=== PATIENT | male | born 1955 | race Hispanic/Latino ===

== ENCOUNTER 2023-04-25 10:58 | Inpatient (IN) | payer OTHER ==
[2023-04-25] MEDS ORDERED: NA CHLORIDE 0.9% 1,000 ML ONE ×2 (12:58→18:10)
[2023-04-25 13:13] LABS: Absolute Lymphocytes (CBC) 1.7 K/uL (0.7-4.9); Hematocrit 39.7 % (39.6-49.0); Lymphocytes % 8.9 % (15.3-44.8); MPV 10.5 fL (7.6-11.3); Platelets 288 thou/uL (152-406); RBC Red Blood Cell Count 4.41 M/uL (4.33-5.43)
[2023-04-25 13:29] LABS: Bilirubin Total 1.6 mg/dL (0.2-1.0); Potassium 3.9 mEq/L (3.5-5.1); Protein, Total 8.2 g/dL (6.4-8.2)
[2023-04-25] MEDS ORDERED: ONDANSETRON 4 MG/2 ML VIAL ONE (13:54)
[2023-04-25] MEDS ORDERED: MORPHINE 4 MG/ML SYR ONE (13:54)
[2023-04-25] MEDS ORDERED: ACETAMINOPHEN 500 MG TAB ONE (13:54)
[2023-04-25] MEDS ORDERED: NA CHLORIDE 0.9% 100 ML ONE (13:54)
[2023-04-25] MEDS ORDERED: PIPERACIL/TAZO 3.375 GM VIAL IV ONE (13:55)
--- NOTE | 2023-04-25 13:57 | RAD REPORT ---
EXAM DESCRIPTION: CT - Abdomen Pelvis W Contrast - 04/25/2023 1:38 pm CLINICAL HISTORY: Abdominal pain COMPARISON: none. TECHNIQUE: Computed axial tomography of the abdomen pelvis was obtained. 100 cc Isovue-300 was admin istered intravenously. Oral contrast was not requested which limits evaluation of bowel and appendix All CT scans are performed using dose optimization technique as appropriate and may include automated exposure control or mA/KV adjustment according to patient size. FINDINGS: Liver, spleen, pancreas, adrenals and left kidney unremarkable Right renal cysts. Largest 2.6 centimeters. Cholelithiasis 5 centimeter fluid collection lies medial to the cecum. It contains air. Stranding is present within the adjacent fat. This probably represents an abscess. A normal appendix is not visualized. No free air IMPRESSION: 5 centimeter abscess medial to the cecum. Since a normal appendix is not visualized this probably is the sequela of perforated appendicitis Cholelithiasis
[2023-04-25 14:27] LABS: Protime INR 1.12
[2023-04-25 14:57] LABS: Specific Gravity > 1.030 (1.005-1.030); Urine Bacteria None Seen /HPF (<20); Urine Bilirubin NEGATIVE (Negative); Urine Blood Negative (Negative); Urine Clarity Clear (Clear); Urine Color Yellow (Yellow); Urine Crystals Unidentified Few /HPF (None Seen); Urine Glucose NEGATIVE (Negative); Urine Mucus Slight /HPF (None Seen); Urine Protein 1+ (Negative); Urine RBC <5 /HPF (None Seen); Urine Urobilinogen 3+ (Normal)
[2023-04-25] MEDS ORDERED: METRONIDAZOLE 500mg IVPB 500 MG/100 ML BAG IV ONE (15:31)
--- NOTE | 2023-04-25 16:18 | EDPHYS ---
Physician Documentation [facility] Name: Murphy Mcdermott Age: 67 yrs Sex: Male : 1955 Arrival Date: 04/25/2023 Time: 10:58 Bed 20 Private MD: ED Physician Soraya Acosta HPI: 04/25 17:30 This 67 yrs old Male presents to ER via Ambulatory with complaints of cp3 Abdominal Pain. 17:30 The patient is a 67-year-old male with a history of hypertension, gout, cp3 hypercholesterolemia who presents to the ED secondary to lower abdominal pain that started on . Patient denies fever, chills, nausea, vomiting, diarrhea, anorexia. Pain became more severe today which prompted him to come to the emergency department.. 17:43 The patient presents with abdominal pain right lower quadrant, in the left lower cp3 quadrant. Onset: The symptoms/episode began/occurred acutely. The symptoms do not radiate. Associated signs and symptoms: none. The symptoms are described as achy, constant, crampy. Modifying factors: The symptoms are alleviated by nothing. Severity of pain: At its worst the pain was moderate in the emergency department the pain has improved. Historical: - Allergies: 11:15 No Known Allergies; ll1 - PMHx: 11:15 Hypercholesterolemia; Hypertensive disorder; Gout; ll1 - PSHx: 11:16 knee SX; ll1 - Immunization history:: Adult Immunizations up to date. - Social history:: Smoking status: Patient denies any tobacco usage or history of. - Family history:: not pertinent. - History obtained from: , endorsed she made him come in because of the pain. ROS: 17:30 Constitutional: Negative for fever, chills, and weight loss, Eyes: Negative for injury, cp3 pain, redness, and discharge, ENT: Negative for injury, pain, and discharge, Neck: Negative for injury, pain, and swelling, Cardiovascular: Negative for chest pain, palpitations, and edema, Respiratory: Negative for shortness of breath, cough, wheezing, and pleuritic chest pain, Back: Negative for injury and pain, : Negative for injury, bleeding, discharge, and swelling, MS/Extremity: Negative for injury and deformity, Skin: Negative for injury, rash, and discoloration, Neuro: Negative for headache, weakness, numbness, tingling, and seizure, Psych: Negative for depression, anxiety, suicide ideation, homicidal ideation, and hallucinations, Allergy/Immunology: Negative for hives, rash, and allergies, Endocrine: Negative for neck swelling, polydipsia, polyuria, polyphagia, and marked weight changes, Hematologic/Lymphatic: Negative for swollen nodes, abnormal bleeding, and unusual bruising. 17:30 Abdomen/GI: Positive for abdominal pain. Exam: 17:43 Constitutional: This is a well developed, well nourished patient who is awake, alert, cp3 and in no acute distress. Head/Face: Normocephalic, atraumatic. Eyes: Pupils equal round and reactive to light, extra-ocular motions intact. Lids and lashes normal. Conjunctiva and sclera are non-icteric and not injected. Cornea within normal limits. Periorbital areas with no swelling, redness, or edema. ENT: Nares patent. No nasal discharge, no septal abnormalities noted. Tympanic membranes are normal and external auditory canals are clear. Oropharynx with no redness, swelling, or masses, exudates, or evidence of obstruction, uvula midline. Mucous membranes moist. Neck: Trachea midline, no thyromegaly or masses palpated, and no cervical lymphadenopathy. Supple, full range of motion without nuchal rigidity, or vertebral point tenderness. No Meningismus. Chest/axilla: Normal chest wall appearance and motion. Nontender with no deformity. No lesions are appreciated. Cardiovascular: Regular rate and rhythm with a normal S1 and S2. No gallops, murmurs, or rubs. Normal PMI, no JVD. No pulse deficits. Respiratory: Lungs have equal breath sounds bilaterally, clear to auscultation and percussion. No rales, rhonchi or wheezes noted. No increased work of breathing, no retractions or nasal flaring. Back: No spinal tenderness. No costovertebral tenderness. Full range of motion. Male : Normal genitalia with no discharge or lesions. 17:43 MS/ Extremity: Pulses equal, no cyanosis. Neurovascular intact. Full, normal range of motion. Neuro: Awake and alert, GCS 15, oriented to person, place, time, and situation. Cranial nerves II-XII grossly intact. Motor strength 5/5 in all extremities. Sensory grossly intact. Cerebellar exam normal. Normal gait. Psych: Awake, alert, with orientation to person, place and time. Behavior, mood, and affect are within normal limits. 17:43 Abdomen/GI: Palpation: soft, moderate abdominal tenderness, suprapubic region. Vital Signs: 11:16 BP 110 / 81; Pulse 89; Resp 17; Temp 100; Pulse Ox 99% ; Weight 86.18 kg; Height 5 ft. ll1 6 in. ; Pain 10/10; 12:59 BP 109 / 69; Pulse 78; Resp 18; Pulse Ox 100% on R/A; mb9 14:10 BP 112 / 70; Pulse 84; Resp 16; Pulse Ox 100% on R/A; mb9 16:22 BP 96 / 70; Pulse 80; Resp 18; Temp 99.1(O); Pulse Ox 97% on R/A; mb9 20:51 BP 110 / 82; Pulse 83; Resp 16; Pulse Ox 97% ; Pain 8/10; sm8 11:16 Body Mass Index 30.67 (86.18 kg, 167.64 cm) ll1 11:16 Pain Scale: Adult ll1 20:51 Pain Scale: Adult sm8 Procedures: 17:43 Performed quality assurance monitor rhythm strip interpreted by ia rate 80, normal sinus rhythm. cp3 MDM: 11:04 Patient medically screened. cp3 17:43 Differential diagnosis: appendicitis, bowel obstruction, Cholelithiasis, cp3 diverticulitis, gastritis, gastroesophageal reflux disease, non-specific abd pain. Data reviewed: vital signs, nurses notes, radiologic studies, CT scan. Management of patient was discussed with the following: Hospitalist: dr hidalgo. Management of patient was discussed with the following: general surgery. I considered the following discharge prescriptions or medication management in the emergency department Medications were administered in the Emergency Department. See MAR. ED course: ivf, iv abx, npo status. 04/25 12:06 Order name: CBC with Diff; Complete Time: 13:26 3 04/25 12:06 Order name: CMP; Complete Time: 14:13 cp3 04/25 12:06 Order name: Lipase; Complete Time: 14:13 3 04/25 13:28 Order name: Blood Culture Adult (2) 3 04/25 13:28 Order name: Lactate w/ 2H reflex if indic.; Complete Time: 15:15 cp3 04/25 13:28 Order name: Protime (+inr); Complete Time: 15:15 cp3 04/25 13:28 Order name: Ptt, Activated; Complete Time: 15:15 cp3 04/25 13:28 Order name: Urinalysis w/ reflexes; Complete Time: 15:15 cp3 04/25 18:08 Order name: Phosphorus EDMS 04/25 18:08 Order name: NT PRO-BNP EDMS 04/25 18:08 Order name: Magnesium EDMS 04/26 02:54 Order name: CBC with Automated Diff EDMS 04/26 03:15 Order name: Hemoglobin A1c EDMS 04/26 03:40 Order name: Basic Metabolic Panel EDMS 04/26 03:40 Order name: Lipid Profile EDMS 04/25 12:06 Order name: CT Abd/Pelvis - IV Contrast Only; Complete Time: 14:13 cp3 04/25 13:28 Order name: EKG; Complete Time: 13:28 cp3 04/25 12:06 Order name: IV Saline Lock; Complete Time: 12:58 cp3 04/25 12:06 Order name: Labs collected and sent; Complete Time: 12:58 cp3 04/25 13:28 Order name: Accucheck; Complete Time: 14:09 cp3 04/25 13:28 Order name: Cardiac monitoring; Complete Time: 14:09 cp3 04/25 13:28 Order name: EKG - Nurse/Tech; Complete Time: 14:47 cp3 04/25 13:28 Order name: IV Saline Lock - Large Bore; Complete Time: 14:09 cp3 04/25 13:28 Order name: O2 Per Protocol; Complete Time: 14:09 cp3 04/25 13:28 Order name: O2 Sat Monitoring; Complete Time: 14:09 cp3 04/25 13:28 Order name: Vital Signs; Complete Time: 14:09 cp3 04/25 16:17 Order name: NPO; Complete Time: 16:23 cp3 Administered Medications: 12:58 Drug: NS 0.9% IV 1000 ml Route: IV; Rate: 1 bolus; Site: left forearm; mb9 14:00 Follow up: IV Status: Completed infusion; IV Intake: 1000ml eh3 13:55 Drug: Acetaminophen PO 1000 mg Route: PO; mb9 13:55 Drug: Ondansetron IVP 4 mg Route: IVP; Site: left forearm; mb9 14:55 Follow up: Response: No adverse reaction mb9 13:58 Drug: morphine IVP or IV 4 mg Route: IVP; Infused Over: 4 mins; Site: left forearm; mb9 14:55 Follow up: Response: No adverse reaction mb9 14:10 Drug: Piperacillin-Tazobactam IVPB 3.375 grams Route: IVPB; Infused Over: 60 mins; mb9 Site: left forearm; 15:23 Follow up: Response: No adverse reaction; IV Status: Completed infusion mb9 15:23 Drug: metroNIDAZOLE IVPB 500 mg Volume: 100 ml; Route: IVPB; Rate: 200 ml/hr; Infused mb9 Over: 30 mins; Site: left forearm; 16:00 Follow up: Response: No adverse reaction; IV Status: Completed infusion; IV Intake: eh3 100ml 16:23 Follow up: Response: No adverse reaction mb9 16:23 Follow up: Response: No adverse reaction; IV Status: Completed infusion mb9 16:23 Drug: vancoMYCIN IVPB 1.5 grams Route: IVPB; Rate: calculated rate; Site: left forearm; mb9 18:15 Follow up: Response: No adverse reaction; IV Status: Completed infusion; IV Intake: eh3 250ml Disposition Summary: 04/25/23 16:17 Hospitalization Ordered Hospitalization Status: Inpatient Admission cp3 Provider: Felipe Hidalgo cp3 Condition: Stable cp3 Problem: new cp3 Symptoms: have improved cp3 Bed/Room Type: Standard 3 Location: Telemetry/MedSurg (Inpatient)(04/26/23 06:10) Room Assignment: 216(04/26/23 07:36) bd Diagnosis - Unspecified acute appendicitis - with perforation cp3 Forms: - Medication Reconciliation Form cp3 - SBAR form cp3 - Leadership Thank You Letter cp3 Signatures: Dispatcher [employer] Marsha Craft Cwanza, MD MD cp3 Teresa Liu RN RN Florencia Driscoll RN RN [email or web address] Danna Delarosa RN RN ll1 Zienab Carlos RN RN mb9 Karol Dudley RN eh3 Corrections: (The following items were deleted from the chart) 11:16 11:15 PSHx: None; ll1 ll1 19:28 16:17 Telemetry/MedSurg (Inpatient) cp3 jl7 :28 16:17 cp3 jl7 04/26 06:10 04/25 19:28 [facility] ER HOLD jl7 04/26 06:10 04/25 19:28 ERHOLD- jl7 04/26 07:36 06:10 [facility]
--- NOTE | 2023-04-25 16:18 | ER ---
Nurse's Notes [facility] Name: Murphy Mcdermott Age: 67 yrs Sex: Male : 1955 Arrival Date: 04/25/2023 Time: 10:58 Bed 20 Private MD: Diagnosis: Unspecified acute appendicitis-with perforation Presentation: 04/25 11:16 Chief complaint: Patient states: Abdominal pain, fever, and constipation since ll1 . Coronavirus screen: Client denies travel out of the [place] in the last 14 days. At this time, the client does not indicate any symptoms associated with coronavirus-19. Ebola Screen: Patient denies travel to an Ebola-affected area in the 21 days before illness onset. Initial Sepsis Screen: Does the patient meet any 2 criteria? No. Patient's initial sepsis screen is negative. Does the patient have a suspected source of infection? Yes: Acute abdominal pain. Risk Assessment: Do you want to hurt yourself or someone else? Patient reports no desire to harm self or others. Onset of symptoms was April 21, 2023. 11:16 Method Of Arrival: Ambulatory ll1 11:16 Acuity: ISATU 3 ll1 Historical: - Allergies: 11:15 No Known Allergies; ll1 - PMHx: 11:15 Hypercholesterolemia; Hypertensive disorder; Gout; ll1 - PSHx: 11:16 knee SX; ll1 - Immunization history:: Adult Immunizations up to date. - Social history:: Smoking status: Patient denies any tobacco usage or history of. - Family history:: not pertinent. - History obtained from: , endorsed she made him come in because of the pain. Screenin:59 [facility] ED Fall Risk Assessment (Adult) History of falling in the last 3 months, mb9 including since admission No falls in past 3 months (0 pts) Confusion or Disorientation No (0 pts) Intoxicated or Sedated No (0 pts) Impaired Gait No (0 pts) Mobility Assist Device Used No (0 pt) Altered Elimination No (0 pt) Score/Fall Risk Level 0 - 2 = Low Risk Oriented to surroundings, Maintained a safe environment, Educated pt \T\ family on fall prevention, incl call for assistance when getting out of bed. Abuse screen: Denies threats or abuse. Nutritional screening: No deficits noted. Tuberculosis screening: No symptoms or risk factors identified. Assessment: 12:58 General: Appears uncomfortable, Behavior is cooperative. Pain: Complains of pain in mb9 abdomen Pain does not radiate. Pain currently is 5 out of 10 on a pain scale. Quality of pain is described as aching, throbbing, Is intermittent. Neuro: Hopper Agitation-Sedation Scale (RASS): 0 - Alert and Calm Level of Consciousness is awake, alert, obeys commands, Oriented to person, place, time, situation, Appropriate for age. Cardiovascular: Patient's skin is warm and dry. Respiratory: Airway is patent Respiratory effort is even, unlabored, Respiratory pattern is regular, symmetrical. GI: Abdomen is round non-distended, Bowel sounds present X 4 quads. Abd is soft Abdomen is tender to palpation in suprapubic area. Derm: Skin is pink, warm \T\ dry. Musculoskeletal: Range of motion: intact in all extremities. 14:00 Reassessment: Patient is alert, oriented x 3, equal unlabored respirations, skin mb9 warm/dry/pink. Patient states feeling better. Patient states symptoms have improved. 16:24 Reassessment: No changes from previously documented assessment. Patient and/or family mb9 updated on plan of care and expected duration. Pain level reassessed. Patient is alert, oriented x 3, equal unlabored respirations, skin warm/dry/pink. Vital Signs: 11:16 BP 110 / 81; Pulse 89; Resp 17; Temp 100; Pulse Ox 99% ; Weight 86.18 kg; Height 5 ft. ll1 6 in. ; Pain 10/10; 12:59 BP 109 / 69; Pulse 78; Resp 18; Pulse Ox 100% on R/A; mb9 14:10 BP 112 / 70; Pulse 84; Resp 16; Pulse Ox 100% on R/A; mb9 16:22 BP 96 / 70; Pulse 80; Resp 18; Temp 99.1(O); Pulse Ox 97% on R/A; mb9 20:51 BP 110 / 82; Pulse 83; Resp 16; Pulse Ox 97% ; Pain 8/10; sm8 11:16 Body Mass Index 30.67 (86.18 kg, 167.64 cm) ll1 11:16 Pain Scale: Adult ll1 20:51 Pain Scale: Adult sm8 ED Course: 11:02 Patient arrived in ED. im 11:04 Soraya Acosta MD is Attending Physician. cp3 11:15 Arm band placed on. ll1 11:18 Triage completed. ll1 12:46 Zeinab Carlos, RN is Primary Nurse. mb9 12:58 CBC with Diff Sent. mb9 12:58 CMP Sent. mb9 12:58 Lipase Sent. mb9 12:58 Inserted saline lock: 20 gauge in left forearm, using aseptic technique. mb9 12:59 Placed in gown. Bed in low position. Call light in reach. Side rails up X 1. Client mb9 placed on continuous cardiac and pulse oximetry monitoring. NIBP monitoring applied. 12:59 No provider procedures requiring assistance completed. mb9 13:40 CT Abd/Pelvis - IV Contrast Only In Process Unspecified. EDMS 14:00 First set of blood cultures drawn by me. mb9 14:05 Second set of blood cultures drawn EKG done, by ED staff, reviewed by Zeinab Carlos RN. 14:55 Urinalysis w/ reflexes Sent. mb9 16:16 Felipe Hidalgo MD is Hospitalizing Provider. cp3 Administered Medications: 12:58 Drug: NS 0.9% IV 1000 ml Route: IV; Rate: 1 bolus; Site: left forearm; mb9 14:00 Follow up: IV Status: Completed infusion; IV Intake: 1000ml eh3 13:55 Drug: Acetaminophen PO 1000 mg Route: PO; mb9 13:55 Drug: Ondansetron IVP 4 mg Route: IVP; Site: left forearm; mb9 14:55 Follow up: Response: No adverse reaction mb9 13:58 Drug: morphine IVP or IV 4 mg Route: IVP; Infused Over: 4 mins; Site: left forearm; mb9 14:55 Follow up: Response: No adverse reaction mb9 14:10 Drug: Piperacillin-Tazobactam IVPB 3.375 grams Route: IVPB; Infused Over: 60 mins; mb9 Site: left forearm; 15:23 Follow up: Response: No adverse reaction; IV Status: Completed infusion mb9 15:23 Drug: metroNIDAZOLE IVPB 500 mg Volume: 100 ml; Route: IVPB; Rate: 200 ml/hr; Infused mb9 Over: 30 mins; Site: left forearm; 16:00 Follow up: Response: No adverse reaction; IV Status: Completed infusion; IV Intake: eh3 100ml 16:23 Follow up: Response: No adverse reaction mb9 16:23 Follow up: Response: No adverse reaction; IV Status: Completed infusion mb9 16:23 Drug: vancoMYCIN IVPB 1.5 grams Route: IVPB; Rate: calculated rate; Site: left forearm; mb9 18:15 Follow up: Response: No adverse reaction; IV Status: Completed infusion; IV Intake: eh3 250ml Intake: 14:00 IV: 1000ml; Total: 1000ml. eh3 16:00 IV: 100ml; Total: 1100ml. eh3 18:15 IV: 250ml; Total: 1350ml. eh3 Outcome: 16:17 Decision to Hospitalize by Provider. 3 08 08:09 Patient left the ED. 1 Signatures: Dispatcher [employer] EDMS Soraya Acosta MD MD cp3 Danna Delarosa RN RN 1 Karol Dudley RN RN 3 Zeinab Carlso RN RN mb9 Rani Cedeno Scarlett 8 Corrections: (The following items were deleted from the chart) 04/25 11:16 11:15 PSHx: None; 1 1 16:23 16:22 BP 96 / 70; Pulse 80bpm; Resp 18bpm; Pulse Ox 97% RA; mb9 [email or web address]
[2023-04-25] MEDS ORDERED: NA CHLORIDE 0.9% 500 ML ONE (16:23)
[2023-04-25] MEDS ORDERED: VANCOMYCIN 500 MG/VIAL ONE (16:23)
[2023-04-25] MEDS ORDERED: VANCOMYCIN 1 GM/VIAL ONE (16:23)
[2023-04-25] MEDS ORDERED: ACETAMINOPHEN 650MG/RECT SUPP PR PRN (17:29)
[2023-04-25] MEDS ORDERED: ONDANSETRON 4 MG/2 ML VIAL IV PRN (17:35)
--- NOTE | 2023-04-25 17:36 | P.HP ---
Certification for Inpatient Patient admitted to: Inpatient With expected LOS: >2 Midnights Patient will require the following post-hospital care: None Practitioner: I am a practitioner with admitting privileges, knowledge of patient current condition, hospital course, and medical plan of care. Services: Services provided to patient in accordance with Admission requirements found in Title 42 Section 412.3 of the Code of Federal Regulations Patient History Date of Service: 04/25/23 Reason for admission: Abdominal pain History of Present Illness: Patient is a 67-year-old male with a past medical history significant for hyperlipidemia, gout, hypertension who presents with complaint of abdominal pain located periumbical area that has been ongoing for the past 4 days. Patient rated pain as 10/10 in severity and described pain as sharp in quality. Patient reported associated signs and symptoms of nausea, fever and chills. Patient denies any other signs or symptoms. Symptoms are aggravated or relieved by nothing. Patient decided to present to the hospital due to worsening symptoms. Allergies No Known Allergies Allergy (Unverified 04/25/23 17:47) Home Medications: Allopurinol 100 mg PO DAILY 04/26/23 Lisinopril [Zestril] 5 mg PO DAILY 04/26/23 Lovastatin 40 mg PO DAILY 04/26/23 Metformin HCl 500 mg PO DAILY 04/26/23 - Past Medical/Surgical History -: HTN -: HLD -: Gout -: Left meniscus repair -: Hemorrhoidectomy - Family History Father -: Diabetes, Cancer Mother -: Diabetes, Cancer - Social History Smoking Status: Former smoker Alcohol use: Yes CD- Drugs: No Caffeine use: Yes Place of Residence: Home Review of Systems General: Fever, Chills Eyes: Unremarkable ENT: Unremarkable Respiratory: Unremarkable Cardiovascular: Unremarkable Gastrointestinal: Nausea, Abdominal Pain Genitourinary: Unremarkable Musculoskeletal: Unremarkable Integumentary: Unremarkable Neurological: Unremarkable Lymphatics: Unremarkable Physical Examination - Physical Exam General: Alert, In no apparent distress, Oriented x3, Cooperative, Mild distress HEENT: Atraumatic, PERRLA, Mucous membr. moist/pink, EOMI, Sclerae nonicteric Neck: Supple, 2+ carotid pulse no bruit, No LAD, Without JVD or thyroid abnormality Respiratory: Clear to auscultation bilaterally, Normal air movement Cardiovascular: No edema, Regular rate/rhythm, Normal S1 S2 Capillary refill: <2 Seconds Gastrointestinal: Normal bowel sounds, Tenderness Musculoskeletal: No clubbing, No swelling, No tenderness Integumentary: No rashes, No significant lesion Neurological: Normal speech, Normal tone, Normal affect Lymphatics: No axilla or inguinal lymphadenopathy - Studies Laboratory Data (last 24 hrs) 04/25/23 04/25/23 04/25/23 14:05 12:54 12:54 WBC 19.40 H Hgb 13.2 L Hct 39.7 Plt Count 288 PT 12.3 INR 1.12 APTT 27.9 Sodium 133 L Potassium 3.9 BUN 14 Creatinine 1.20 Glucose 104 Total Bilirubin 1.6 H AST 43 H ALT 74 H Alkaline Phosphatase 202 H Lipase 40 Assessment and Plan - Plan --Acute appendicitis. CT imaging indicates findings suspicious for perforated appendicitis. Continue antibiotics. Surgeon consulted. Will await further recommendations. --Acute pain. We will manage pain with current pain medication regimen. -- Leukocytosis. Likely secondary to appendicitis. Blood cultures pending. Continue antibiotics. --Hyperlipidemia continue statin when appropriate --Gout. Continue allopurinol when appropriate --Hypertension. Stable. Continue home medications. --Class I obesity. Likely secondary to excess calories intake. Patient counseled on weight reduction, diet and exercise therapy. --CKD 2. Baseline functions unknown. We will continue to monitor renal functions. --DVT prophylaxis with SCDs Discharge Plan: Home Plan to discharge in: Greater than 2 days - Advance Directives Does patient have a Living Will: No Does patient have a Durable POA for Healthcare: No - Code Status/Comfort Care Code Status Assessed: Yes Physician Review: Patient Assessed, Agree with Above Assessment and Plan Critical Care: No
[2023-04-25 17:49] VITALS: BMI 30.4
[2023-04-25] MEDS: NA CHLORIDE 0.9% 1,000 ML IV SCH (18:00)
[2023-04-25 18:08] LABS: Magnesium 1.8 mg/dL (1.6-2.4); Phosphorus 2.2 mg/dL (2.5-4.9)
[2023-04-25] MEDS: HYDROMORPHONE HCL 1 MG/ML INJ IV PRN ×2 (18:08→21:35)
[2023-04-25] MEDS ORDERED: HYDROMORPHONE HCL 1 MG/ML INJ ONE ×2 (18:10→21:59)
[2023-04-25] MEDS ORDERED: CIPROFLOXACIN 400mg IV 400 MG/200 ML BAG IV ONE (20:48)
[2023-04-25] MEDS: CIPROFLOXACIN 400mg IV 400 MG/200 ML BAG IV SCH (20:50)
[2023-04-26] MEDS ORDERED: METRONIDAZOLE 500mg IVPB 500 MG/100 ML BAG IV ONE (00:56)
[2023-04-26] MEDS: METRONIDAZOLE 500mg IVPB 500 MG/100 ML BAG IV SCH ×3 (01:00→16:34)
[2023-04-26 02:50] LABS: Absolute Lymphocytes (CBC) 1.3 K/uL (0.7-4.9); Hematocrit 31.7 % (39.6-49.0); Lymphocytes % 7.9 % (15.3-44.8); MCV 89.9 fL (80-100); MPV 10.5 fL (7.6-11.3); Platelets 225 thou/uL (152-406); RBC Red Blood Cell Count 3.53 M/uL (4.33-5.43)
[2023-04-26 03:03] LABS: Potassium 3.7 mEq/L (3.5-5.1)
[2023-04-26] MEDS: HYDROMORPHONE HCL 1 MG/ML INJ IV PRN ×6 (03:10→23:52)
[2023-04-26] MEDS ORDERED: HYDROMORPHONE HCL 1 MG/ML INJ ONE (03:17)
[2023-04-26] MEDS ORDERED: KCL 20 MEQ/100 mL IVPB 20 MEQ/100 ML BAG IV SCH (06:00)
[2023-04-26] MEDS ORDERED: KCL 20 MEQ/100 mL IVPB 100 ML IV ONE (06:32)
[2023-04-26] MEDS ORDERED: NA CHLORIDE 0.9% 1,000 ML ONE (06:32)
[2023-04-26] MEDS: NA CHLORIDE 0.9% 1,000 ML IV SCH ×2 (09:21→20:30)
[2023-04-26] MEDS: CIPROFLOXACIN 400mg IV 400 MG/200 ML BAG IV SCH ×2 (09:27→20:29)
--- NOTE | 2023-04-26 13:45 | P.PN ---
Subjective Date of Service: 04/26/23 Chief Complaint: Abdominal pain Patient reports his pain is well controlled. He denies any nausea or vomiting. He denies any fever. Physical Examination - Vital Signs Temperature: 97.6 F Blood Pressure: 109/61 Pulse: 76 Respirations: 16 Pulse Ox (%): 96 - Studies Laboratory Data (last 24 hrs) 04/25/23 04/25/23 14:05 12:54 PT 12.3 INR 1.12 APTT 27.9 Phosphorus 2.2 L Magnesium 1.8 Assessment And Plan - Current Problems (Diagnosis) (1) Appendiceal abscess Current Visit: Yes Status: Acute (2) Leukocytosis Current Visit: Yes Status: Acute (3) Chronic gout Current Visit: Yes Status: Acute (4) Essential hypertension Current Visit: Yes Status: Acute - Plan Clinically stable. Leukocytosis trended down. Continue antibiotics-IV Flagyl and Cipro. General surgery Dr. Corona is following. Conservative measures with IV antibiotics. Clear liquid diet today and then advance diet as tolerated. IV hydration Resume home medications for gout, and hypertension. Monitor CBC to follow leukocytosis.
--- NOTE | 2023-04-26 15:15 | CON ---
Date of Consultation: 04/25/2023 Brief History Of Present Illness: The patient is a 67-year-old male with a past medical history of h yperlipidemia, gout, hypertension, who presented to the hospital with periumbilical pain beginning ap proximately 4 to 5 days prior to his arrival. He states that the pain began approximately 5 days ago in the periumbilical region and got somewhat worse progressively over the course of days. He though t this was related to a pulled muscle; however, it continued to get worse, the pain became excruciati ng at that point, therefore bring him to the hospital. He had some low-grade nausea. No vomiting. No change in his bowel or bladder habits. He did have subjective fever and chills. No sick contacts . No recent travel. No new food exposures. During my examination, he has received antibiotics and some pain medications. He felt some improvement, but not resolution of his symptoms. Past Medical History: Hyperlipidemia, hypertension, gout, prediabetes. Past Surgical History: Includes left meniscus repair and hemorrhoidectomy. Allergies: NO KNOWN DRUG ALLERGIES. Home Medications: Include allopurinol, Zestril, lovastatin, metformin. Family History: His father had diabetes and cancer. His mother had diabetes and cancer. Social History: He has a positive past tobacco use history, but quit cigarettes years ago. He drink s alcohol socially. Denies recreational drug use. Review of Systems: Ten-point review of systems other than HPI, denies. Physical Examination: Vital Signs: At the time of my examination; his BMI is 30.5. His blood pressure was 110/81, pulse i s 89, respiratory rate 17, temperature was 97.1, SpO2 98% on room air. General: He is awake, alert, oriented. Psychiatric: He is appropriate, conversive. HEENT: He is normocephalic. His sclerae anicteric. Mucous membranes are moist. Oropharynx is gurmeet r. Neck: Supple without JVD. Chest: Normal expansion and excursion. Cardiovascular: Regular rate and rhythm. Pulmonary: Clear to auscultation bilaterally. Abdomen: Soft with mild infraumbilical and suprapubic tenderness to deep palpation. No rebound. No guarding. No focal peritonitis. Extremities: No clubbing, cyanosis, or edema. Skin: Warm and dry. Laboratory Data: Revealed a white blood cell count of 19.4, hemoglobin 13.2, hematocrit 39.7, platel et count was 288. His neutrophils were 81%. His PT 12.1, INR 1.12, PTT is 27.9. Sodium 133, potass ium 3.9, chloride 102, carbon dioxide 22, BUN 14, creatinine 1.2, glucose is 104. His lactic acid wa s 1.6, phosphorus is 2.2, magnesium 1.8, total bilirubin 1.6, AST 43, ALT 74, alkaline phosphatase is 202. His urinalysis was pending during the exam. He had a CT scan performed of the abdomen and pel vis, which was officially read as a 5 cm abscess medial to the cecum. Since normal, appendix is not visualized. This probably is a sequelae of a perforated appendicitis and he has cholelithiasis. Assessment And Plan: This is a 67-year-old male, who comes in with evidence of abscess and likely pe rforated appendicitis with intra-abdominal abscess formation. 1.IV fluid hydration. 2.Antibiotic coverage. 3.I have explained that we will attempt nonoperative management of his abscess and see if he respond s to this as he is likely already sealed to contain this infection to this portion of his abdomen. I t does not appear to be amenable to percutaneous drainage. I have discussed the case with Dr. Orlando capellan who also agrees that it is not amenable to percutaneous drainage. As such, we will continue with antibiotics. I have explained that if he has any signs of non-reassurance, non-progression, unable t olerate diet or any other findings of concern with respect to the intra-abdominal collection worsenin g, we will discuss going forward with a laparoscopic possible open appendectomy, possible exploratory laparotomy and resection of the appendix and drainage of the intra-abdominal abscess. The risks of this include bleeding, infection, damage to surrounding tissues, fistula formation and intestinal inj ury, need for further operation and procedures, heart attacks, strokes, blood clots, perioperative co mplication related to anesthesia, and need for ongoing wound care. The patient agrees to proceed wit h medical management at this point. We will give him antibiotics and follow him daily with serial ab dominal exams. Thank you for this interesting consult. ANSHUL/REGLA Voice ID: [id number] Report ID: [id number]
--- NOTE | 2023-04-26 15:52 | EKG ---
Test Date: 2023-04-25 Test Time: 14:43:49 [place]: MB MEASUREMENT RESULTS: Intervals: Rate: 91 IL: 150 QRSD: 106 QT: 352 QTc: 432 [place]: P: 80 IL: 150 QRS: -61 T: 22 INTERPRETIVE STATEMENTS: Normal sinus rhythm Left axis deviation Pulmonary disease pattern Abnormal ECG No previous ECG available for comparison Electronically Signed On 04-26-23 15:51:39 CDT by Amado Saenz
[2023-04-26] MEDS: ATORVASTATIN 20 MG TAB PO SCH (20:29)
[2023-04-27 03:37] LABS: Absolute Lymphocytes (CBC) 1.3 K/uL (0.7-4.9); Hematocrit 30.4 % (39.6-49.0); Lymphocytes % 8.7 % (15.3-44.8); MCV 89.7 fL (80-100); MPV 11.1 fL (7.6-11.3); Platelets 214 thou/uL (152-406); RBC Red Blood Cell Count 3.39 M/uL (4.33-5.43)
[2023-04-27 03:56] LABS: Potassium 3.7 mEq/L (3.5-5.1)
[2023-04-27] MEDS ORDERED: POTASSIUM CL SA 10 MEQ TAB PO ONE (03:58)
[2023-04-27] MEDS: HYDROMORPHONE HCL 1 MG/ML INJ IV PRN ×6 (04:51→23:20)
[2023-04-27] MEDS: lisinopriL 5 MG TAB PO SCH (07:56)
[2023-04-27] MEDS: allopurinoL 100 MG TAB PO SCH (07:59)
[2023-04-27] MEDS: METRONIDAZOLE 500mg IVPB 500 MG/100 ML BAG IV SCH ×3 (08:00→16:02)
[2023-04-27] MEDS: CIPROFLOXACIN 400mg IV 400 MG/200 ML BAG IV SCH ×2 (08:00→20:27)
[2023-04-27] MEDS ORDERED: HOME MED 1 EA UNK (Lovastatin [Lovastatin] 40 MG Tablet) PO SCH (09:00)
[2023-04-27] MEDS: NA CHLORIDE 0.9% 1,000 ML IV SCH ×2 (10:00→14:49)
--- NOTE | 2023-04-27 15:58 | P.PN ---
Subjective Date of Service: 04/27/23 Chief Complaint: Abdominal pain Patient reports intermittent pain. He denies any fever. He is tolerating clear liquid diet. Physical Examination - Vital Signs Temperature: 98.6 F Blood Pressure: 106/63 Pulse: 80 Respirations: 16 Pulse Ox (%): 95 Assessment And Plan - Current Problems (Diagnosis) (1) Appendiceal abscess Current Visit: Yes Status: Acute (2) Leukocytosis Current Visit: Yes Status: Acute (3) Chronic gout Current Visit: Yes Status: Acute (4) Essential hypertension Current Visit: Yes Status: Acute - Plan Clinically stable. Only slight improvement in leukocytosis from yesterday. Continue antibiotics-IV Flagyl and Cipro. General surgery Dr. Corona is following. Patient is tolerating clear liquid diet Continue IV antibiotics. IV hydration Continue home medications for gout, and hypertension. Monitor CBC to follow leukocytosis.
--- NOTE | 2023-04-27 18:15 | P.PN ---
Subjective Date of Service: 04/27/23 Chief Complaint: Abdominal pain Subjective: Improving (Patient continues to improve, pain improving, tolerating clears well) Physical Examination - Vital Signs Temperature: 98.6 F Blood Pressure: 106/63 Pulse: 80 Respirations: 16 Pulse Ox (%): 95 - Physical Exam General: Alert, In no apparent distress, Cooperative Gastrointestinal: Other (soft, mild supraumbilical TTP, ND, no rebound, no guarding, improved from prior) Neurological: Normal speech Assessment And Plan - Current Problems (Diagnosis) (1) Appendiceal abscess Current Visit: Yes Status: Acute Plan: - continue serial exams - continue antibiotics - advance diet slowly - ambulate Physician Review: Patient Assessed, Agree with Above Assessment and Plan
[2023-04-27] MEDS: ATORVASTATIN 20 MG TAB PO SCH (20:27)
[2023-04-28] MEDS: METRONIDAZOLE 500mg IVPB 500 MG/100 ML BAG IV SCH ×2 (01:18→09:00)
[2023-04-28 03:40] LABS: Absolute Lymphocytes (CBC) 1.6 K/uL (0.7-4.9); Hematocrit 30.4 % (39.6-49.0); Lymphocytes % 9.9 % (15.3-44.8); MCV 89.3 fL (80-100); MPV 11.1 fL (7.6-11.3); Platelets 258 thou/uL (152-406)
[2023-04-28 03:41] LABS: Magnesium 1.7 mg/dL (1.6-2.4); Phosphorus 2.7 mg/dL (2.5-4.9); Potassium 3.7 mEq/L (3.5-5.1)
[2023-04-28] MEDS: HYDROMORPHONE HCL 1 MG/ML INJ IV PRN ×6 (04:21→23:58)
[2023-04-28] MEDS ORDERED: POTASSIUM 25 MEQ EFFERV TAB PO ONE (05:05)
[2023-04-28] MEDS ORDERED: MAGNESIUM SULFATE 1 gm IVPB 1 GM/100 ML BAG IV ONE (05:05)
[2023-04-28] MEDS: CIPROFLOXACIN 400mg IV 400 MG/200 ML BAG IV SCH (09:00)
[2023-04-28] MEDS: NA CHLORIDE 0.9% 1,000 ML IV SCH ×2 (09:42→23:58)
[2023-04-28] MEDS: allopurinoL 100 MG TAB PO SCH (09:43)
[2023-04-28] MEDS: lisinopriL 5 MG TAB PO SCH (09:43)
[2023-04-28] MEDS ORDERED: PIPER TAZO 3.375 GM in NA CHLORIDE 0.9% 100 ML IV SCH (12:00)
[2023-04-28] MEDS: PIPER TAZO 3.375 GM in NA CHLORIDE 0.9% 100 ML IV SCH ×2 (14:22→20:34)
[2023-04-28] MEDS ORDERED: Meropenem 1,000 MG in NA CHLORIDE 0.9% 100 ML IV SCH (17:00)
--- NOTE | 2023-04-28 18:31 | P.PN ---
Subjective Date of Service: 04/28/23 Chief Complaint: Abdominal pain Subjective: Improving Physical Examination - Vital Signs Temperature: 99.5 F Blood Pressure: 117/70 Pulse: 86 Respirations: 16 Pulse Ox (%): 98 - Physical Exam General: Alert, In no apparent distress, Cooperative Respiratory: Clear to auscultation bilaterally, Normal air movement Gastrointestinal: Other (soft, mild suprapubic ttp, ND, some improvement from prior, but similar, no peritonitis, no reboudn, no gaurding) Assessment And Plan - Current Problems (Diagnosis) (1) Appendiceal abscess Current Visit: Yes Status: Acute Plan: - continue serial exams - continue antibiotics, change to Zosyn - advance diet slowly - ambulate Physician Review: Patient Assessed, Agree with Above Assessment and Plan
[2023-04-28] MEDS: ATORVASTATIN 20 MG TAB PO SCH (20:34)
[2023-04-28] MEDS: DOCUSATE NA 100 MG CAP PO SCH (20:34)
[2023-04-28] MEDS: POLYETHYL GLY 3350 17 GM/DOSE PO SCH (20:34)
[2023-04-29] MEDS: HYDROMORPHONE HCL 1 MG/ML INJ IV PRN ×3 (05:04→20:13)
[2023-04-29] MEDS: PIPER TAZO 3.375 GM in NA CHLORIDE 0.9% 100 ML IV SCH ×3 (05:07→20:08)
[2023-04-29 07:00] LABS: Absolute Lymphocytes (CBC) 1.8 K/uL (0.7-4.9); Hematocrit 33.1 % (39.6-49.0); Lymphocytes % 10.9 % (15.3-44.8); MPV 9.8 fL (7.6-11.3); Platelets 291 thou/uL (152-406); RBC Red Blood Cell Count 3.72 M/uL (4.33-5.43)
[2023-04-29 07:14] LABS: Magnesium 1.8 mg/dL (1.6-2.4); Potassium 3.7 mEq/L (3.5-5.1)
[2023-04-29] MEDS ORDERED: MAGNESIUM SULFATE 1 gm IVPB 1 GM/100 ML BAG IV ONE (07:25)
[2023-04-29] MEDS ORDERED: POTASSIUM 25 MEQ EFFERV TAB PO ONE (07:26)
[2023-04-29] MEDS: DOCUSATE NA 100 MG CAP PO SCH ×2 (09:00→20:01)
[2023-04-29] MEDS: POLYETHYL GLY 3350 17 GM/DOSE PO SCH ×2 (09:00→19:12)
[2023-04-29] MEDS: lisinopriL 5 MG TAB PO SCH (09:00)
[2023-04-29] MEDS: allopurinoL 100 MG TAB PO SCH (09:00)
[2023-04-29] MEDS ORDERED: ERTAPENEM SODIUM 1 GM VIAL IVPB ONE (10:14)
[2023-04-29] MEDS ORDERED: ERTAPENEM NA 1 GM in NA CHLORIDE 0.9% 100 ML IVPB ONE (10:30)
--- NOTE | 2023-04-29 11:41 | RAD REPORT ---
EXAM DESCRIPTION: CTAbdomen Pelvis W Contrast - 04/29/2023 11:27 am CLINICAL HISTORY: Abdominal pain. Follow up appendiceal mass COMPARISON: Abdomen Pelvis W Contrast dated 04/25/2023 TECHNIQUE: Biphasic CT imaging of the abdomen and pelvis was performed with 100 ml non-ionic IV cont rast. All CT scans are performed using dose optimization technique as appropriate and may include automated exposure control or mA/KV adjustment according to patient size. FINDINGS: The lung bases are clear. The liver, spleen, pancreas, adrenal glands and left kidney are within normal limits. Benign right re nal cysts. Cholelithiasis. There is again noted periappendiceal abscess in the right lower quadrant of the abdomen. This has mil dly increased in size since prior study currently measuring 5.9 x 6.0 cm. Moderate inflammatory mabry ges are present surrounding this collection. No evidence of significant lymphadenopathy. No suspicious bony findings. IMPRESSION: [id number] enlargement of right lower quadrant suspected periappendiceal abscess. Cholelithiasis.
[2023-04-29] MEDS ORDERED: Ringers Lactate 1,000 ML IV ONE ×2 (12:10→14:00)
[2023-04-29] MEDS ORDERED: BUPIVACAINE 0.25% PF 10 ML VIAL ONE (12:32)
[2023-04-29] MEDS ORDERED: FENTANYL CITR 100 MCG/2 ML ONE (12:33)
[2023-04-29] MEDS ORDERED: propofoL 200 MG/20 ML VIAL IV ONE (12:34)
[2023-04-29] MEDS ORDERED: ROCURONIUM 50 MG/5 ML VIAL IV ONE (12:34)
[2023-04-29] MEDS ORDERED: ONDANSETRON 4 MG/2 ML VIAL ONE ×2 (12:36→15:27)
[2023-04-29] MEDS ORDERED: LIDOCAINE 2% MPF 5 ML VIAL ONE (12:36)
[2023-04-29] MEDS ORDERED: MIDAZOLAM HCL 2 MG/2 ML INJ ONE (12:37)
--- NOTE | 2023-04-29 14:23 | P.OP ---
Preoperative diagnosis: Abdominopelvic Abscess Postoperative diagnosis: Abdominopelvic Abscess Primary procedure: Diagnostic Laparoscopy Secondary procedure: Drainage of Abdominopelvic Abscess Other procedure(s): Placement of Abdominal Drain Anesthesia: GETA + Local Estimated blood loss: < 50cc Specimen: none Findings: Abdominal abscess, appendix not visualized, severe inflammation Complications: None Drain(s): Urinary catheter, ALBINO drain Transferred to: Recovery Room Condition: Good
[2023-04-29] MEDS ORDERED: GLYCOPYRROLATE 0.2 MG/ML SYR ONE (14:38)
[2023-04-29] MEDS ORDERED: NEOSTIGMINE 1 MG/ML -10 ML VIAL ONE (14:38)
[2023-04-29] MEDS ORDERED: KETOROLAC 30 MG/ML INJ ONE (14:43)
--- NOTE | 2023-04-29 16:03 | RAD REPORT ---
EXAM DESCRIPTION: RAD - Abdomen 1 View (KUB) - 04/29/2023 3:56 pm CLINICAL HISTORY: Device placement nasogastric tube placement FINDINGS: Tip of a nasogastric tube lies near the junction of the gastric fundus and body
[2023-04-29] MEDS: INSULIN -REGULAR HUMAN 50 UNIT/0.5 ML ML SQ SCH ×2 (16:30→20:10)
--- NOTE | 2023-04-29 18:14 | P.PN ---
Subjective Date of Service: 04/29/23 Chief Complaint: Abdominal pain Patient reported uncontrolled pain Leukocytosis worsened compared to yesterday. Physical Examination - Vital Signs Temperature: 97.1 F Blood Pressure: 112/71 Pulse: 85 Respirations: 18 Pulse Ox (%): 90 Assessment And Plan - Current Problems (Diagnosis) (1) Appendiceal abscess Current Visit: Yes Status: Acute (2) Leukocytosis Current Visit: Yes Status: Acute (3) Chronic gout Current Visit: Yes Status: Acute (4) Essential hypertension Current Visit: Yes Status: Acute - Plan CT abdomen pelvis done today showed enlargement of the periappendiceal abscess. Antibiotics changed from IV Cipro and Flagyl to IV Zosyn yesterday Patient seen and evaluated by Dr. Corona. Laparotomy performed due to enlargement of the periappendiceal abscess, abscess was drained and ALBINO drain inserted. Continue antibiotics-IV Zosyn Pain management as needed. Patient is currently n.p.o. IV fluid maintenance. Monitor CBC to follow leukocytosis.
[2023-04-29] MEDS: NA CHLORIDE 0.9% 1,000 ML IV SCH (18:47)
[2023-04-29] MEDS: ATORVASTATIN 20 MG TAB PO SCH (19:12)
--- NOTE | 2023-04-30 00:55 | OP ---
Date of Procedure: 04/29/2023 Surgeon: Esteban Corona MD, Brief History Of Present Illness: The patient is a 67-year-old man who presented to the hospital wit h an abdominopelvic abscess several days ago. He had been treated with antibiotics as the CT scan wa s suspicious for perforation of appendix, but no appendix was visualized and intra-abdominal/pelvic a bscess adjacent to the cecum in the region of the appendix. He was treated with antibiotics and init ially improved. His pain continued to improve; however, this morning he noted worsening pain and his white blood cell count went up/he had increased leukocytosis. As such, a CT scan of the abdomen and pelvis was performed, which showed enlargement of the same said abdominopelvic abscess. No other si gnificant findings. As such, with the patient's increased pain, increased leukocytosis, and enlargem ent of the abscess not amenable to percutaneous drainage, I opted for an exploratory laparoscopy and drainage of abdominopelvic abscess and placement of a drain and indicated procedures. I discussed ri sks, benefits, and alternatives of the above-stated plan including but not limited to bleeding, infec tion, damage to surrounding tissues, need for further operation or procedures, blood clots, heart att ack, stroke, and other unforeseen complications related to anesthesia. I also explained that the sandrine endix may not be visualized and may not be able to be removed and that he may require multiple surger ies as described above. The patient and his agreed to proceed as indicated. Preoperative Diagnosis: Abdominopelvic abscess. Postoperative Diagnosis: Abdominopelvic abscess. Procedures Performed: 1.Diagnostic laparoscopy. 2.Drainage of abdominopelvic abscess. 3.Placement of abdominal drain. Anesthesia: General endotracheal plus local with 0.25% Marcaine. Estimated Blood Loss: Less than 5 cc. Specimen: None. Findings: There was a large abdominopelvic abscess with pus appreciated adjacent to the cecum. The appendix was not visualized. There was significant severe inflammatory reaction. There was some ble eding from the sigmoid colon mesentery due to severe adhesions and traction injury occurred due to si gnificant scar tissue and adhesions, which caused bleeding in a small mesenteric vessel. This was co ntrolled with the LigaSure device. Complications: None. Drains: Urinary catheter and ALBINO drain. NG tube was attempted by Anesthesia provider and unable to b e completed. As such, NG tube was abandoned and the orogastric tube was removed. The patient transf erred to recovery room in good condition. Procedure In Detail: After informed consent was obtained as described above, the patient was prepped and draped in the usual sterile fashion after adequate anesthesia was achieved. I opted to place a left upper quadrant trocar to enter the abdomen safely, as the patient had an abdominopelvic abscess located near the periumbilical position and was palpable in this region. As such, the left upper thierno drant area was anesthetized and sharply incised. A 5 mm trocar was placed under direct visualization without evidence of complication. Insufflation was obtained to 15 mmHg at this time. There was no injury to vital structures in the abdomen. Three additional trocars were placed, one in the infraumb ilical position after pneumoperitoneum allowed for separation of the abscess from the abdominal wall. A 12 mm trocar was placed under direct visualization without evidence of complication in the right lower quadrant. A 5 mm trocar was placed and additionally a left mid abdomen trocar was placed under direct visualization without evidence of complication in the left lower quadrant. Trocars were plac ed under direct visualization without evidence of complication, which is a 5 mm trocar. I continued by inspecting the abdomen at this point. The omentum was swept above the liver at this point and was not adhered to any structures. The patient was positioned with head down and right side up position . Ratcheted grasper was used to grasp the patient's cecum and mobilized it from the white line to al low for medialization of the colon to attempt to visualize the appendix at this area. Following the teniae coli, I was unable to find the appendix, as there was significant inflammatory reaction. The sigmoid colon was swung over and firmly adhered by scar tissue as well as multiple loops of small bow el firmly adhered to the medial aspect of the cecum as well as the ileocecal valve having significant inflammatory change and the ileal veil was quite thick and with an inflammatory rind evident. I con tinued meticulous dissection to sweep back all small bowel and intestinal structures to palpate and v isualize an abscess in the central portion adjacent to the cecum at this point. I then grasped, elev ated, and opened this cavity at this point, immediately encountered was green purulent fluid which wa s suctioned out immediately, which was consistent with abscess. I opened the cavity and marsupialize d it at this point and did not see any obvious bowel injury. I irrigated the area copiously. No suc cus entericus was appreciated throughout the procedure. There was no obvious intestinal injury throu ghout the entire procedure. At this point, I continued mobilizing to see if I could visualize the ap pendix adjacent to the structure and an adhesion between the sigmoid colon and this abscess cavity ca used traction injury to the distal mesentery of the sigmoid colon. There was small arterial bleeding at this point and venous bleeding, which was compressed at this point with clamp and ultimately, I u sed the LigaSure device to control the small perforating vessels. This was not a major sigmoidal bra nc and it was controlled with the LigaSure device with minimal blood loss. At this point, I copious ly irrigated the abdomen and suctioned out all the fluid with approximately 3 L of sterile saline. I suctioned out the abscess cavity. I brought a 10 mm flat ALBINO drain in through the right lower quadra nt trocar and placed it into the previous abscess cavity and swept it through the pelvis coming out a t the insertion site. It was then secured to the skin with a 2-0 nylon suture. At this point, I petty bao Jorje powder into the sigmoidal area, where the injury was and into the area where the abscess c avity was with minimal spray. At this point, I brought the omentum and packed it into the previous a marco antonio as well, where the previous abscess was appreciated and swept it over the entire abdominal conten ts for protection. The patient was positioned in neutral position at this point. The remaining flui d was suctioned out. I then closed the 12 mm trocar with a Abelino-Reginald suture passer using an 0 Vicryl in an interrupted fashion with good approximation of tissues. All remaining trocars were jessica dianelys. All skin incisions were then copiously irrigated and closed with a 4-0 Monocryl in a running fa shion. Dermabond was placed over top. The patient tolerated the procedure well without evidence of complication and was transferred to PACU in good condition. All counts were correct at the end of the case. ANSHUL/WINTERL Voice ID: [id number] Report ID: [id number]
[2023-04-30 03:51] LABS: Absolute Lymphocytes (CBC) 0.9 K/uL (0.7-4.9); Hematocrit 33.3 % (39.6-49.0); Lymphocytes % 3.8 % (15.3-44.8); MCV 89.5 fL (80-100); MPV 10.1 fL (7.6-11.3); Platelets 335 thou/uL (152-406); RBC Red Blood Cell Count 3.73 M/uL (4.33-5.43)
[2023-04-30] MEDS: NA CHLORIDE 0.9% 1,000 ML IV SCH ×3 (04:31→16:09)
[2023-04-30] MEDS: PIPER TAZO 3.375 GM in NA CHLORIDE 0.9% 100 ML IV SCH ×3 (04:39→21:05)
[2023-04-30 04:59] LABS: Blood Morphology Comment NOT SEEN (NOT SEEN); Platelet Estimate ADEQ; White Blood Cell Scan OK (OK)
[2023-04-30] MEDS: INSULIN -REGULAR HUMAN 50 UNIT/0.5 ML ML SQ SCH ×4 (07:30→21:00)
[2023-04-30] MEDS: DOCUSATE NA 100 MG CAP PO SCH ×2 (09:00→21:00)
[2023-04-30] MEDS: POLYETHYL GLY 3350 17 GM/DOSE PO SCH ×2 (09:00→21:00)
[2023-04-30] MEDS: lisinopriL 5 MG TAB PO SCH (09:00)
[2023-04-30] MEDS: allopurinoL 100 MG TAB PO SCH (09:00)
--- NOTE | 2023-04-30 12:16 | P.PN ---
Subjective Date of Service: 04/30/23 Chief Complaint: Abdominal pain Patient report discomfort with the NG tube. Status post exploratory laparoscopy with drainage of intra-abdominal abscess yesterday. Physical Examination - Vital Signs Temperature: 97.7 F Blood Pressure: 146/82 Pulse: 68 Respirations: 16 Pulse Ox (%): 93 - Physical Exam General: Alert, In no apparent distress, Oriented x3 HEENT: Mucous membr. moist/pink, Other (NG tube to suction) Neck: JVD not distended Respiratory: Clear to auscultation bilaterally, Normal air movement Cardiovascular: No edema, Regular rate/rhythm, Normal S1 S2 Gastrointestinal: Soft and benign, Non-distended, Absent bowel sounds Musculoskeletal: No swelling Integumentary: No rashes, No cyanosis Neurological: Normal strength at 5/5 x4 extr Urinary: Sparks catheter Assessment And Plan - Current Problems (Diagnosis) (1) Appendiceal abscess Current Visit: Yes Status: Acute (2) Leukocytosis Current Visit: Yes Status: Acute (3) Chronic gout Current Visit: Yes Status: Acute (4) Essential hypertension Current Visit: Yes Status: Acute - Plan CT abdomen pelvis done yesterday showed enlargement of the periappendiceal abscess. Patient seen and evaluated by Dr. Corona. Laparotomy performed due to enlargement of the periappendiceal abscess, abscess was drained and ALBINO drain inserted. Continue antibiotics-IV Zosyn. NG tube to suction per Dr. Corona Discontinue Sparks catheter. Pain management as needed. Patient is currently n.p.o. Leukocytosis is worse today-stress from surgery is contributing. Continue to monitor CBC to follow leukocytosis. IV fluid maintenance. Infectious disease consult. .
[2023-04-30] MEDS: ATORVASTATIN 20 MG TAB PO SCH (21:00)
[2023-05-01] MEDS: NA CHLORIDE 0.9% 1,000 ML IV SCH ×4 (00:25→23:56)
[2023-05-01] MEDS: HYDROMORPHONE HCL 1 MG/ML INJ IV PRN (00:28)
[2023-05-01 03:48] LABS: Absolute Lymphocytes (CBC) 1.9 K/uL (0.7-4.9); Hematocrit 30.4 % (39.6-49.0); Lymphocytes % 14.3 % (15.3-44.8); MCV 89.7 fL (80-100); Platelets 355 thou/uL (152-406); RBC Red Blood Cell Count 3.39 M/uL (4.33-5.43)
[2023-05-01 04:06] LABS: Potassium 4.1 mEq/L (3.5-5.1)
[2023-05-01] MEDS: PIPER TAZO 3.375 GM in NA CHLORIDE 0.9% 100 ML IV SCH ×3 (04:23→20:10)
[2023-05-01] MEDS: INSULIN -REGULAR HUMAN 50 UNIT/0.5 ML ML SQ SCH ×3 (06:00→18:00)
[2023-05-01 07:43] LABS: Magnesium 2.2 mg/dL (1.6-2.4)
[2023-05-01] MEDS: allopurinoL 100 MG TAB PO SCH (09:00)
[2023-05-01] MEDS: lisinopriL 5 MG TAB PO SCH (09:00)
[2023-05-01] MEDS: DOCUSATE NA 100 MG CAP PO SCH ×2 (09:00→19:59)
[2023-05-01] MEDS: POLYETHYL GLY 3350 17 GM/DOSE PO SCH ×2 (09:00→20:00)
--- NOTE | 2023-05-01 12:14 | P.PN ---
Subjective Date of Service: 05/01/23 Chief Complaint: Abdominal pain Significant output from the NG tube-about 600 ml yesterday. No recorded fever. Physical Examination - Vital Signs Temperature: 98.3 F Blood Pressure: 149/72 Pulse: 76 Respirations: 16 Pulse Ox (%): 94 - Physical Exam General: Alert, In no apparent distress, Oriented x3 HEENT: Other (NG tube) Neck: JVD not distended Respiratory: Clear to auscultation bilaterally, Normal air movement Cardiovascular: No edema, Regular rate/rhythm, Normal S1 S2 Gastrointestinal: Hypoactive, Soft and benign, Non-distended Musculoskeletal: No swelling Integumentary: No rashes Neurological: Normal strength at 5/5 x4 extr - Studies Microbiology Data (last 24 hrs): 04/25/23 14:05 Blood - Blood Aerobic Blood Culture - Final No growth in 5 days. 04/25/23 14:05 Blood - Blood Anaerobic Blood Culture - Final No growth in 5 days. 04/25/23 14:00 Blood - Blood Aerobic Blood Culture - Final No growth in 5 days. 04/25/23 14:00 Blood - Blood Anaerobic Blood Culture - Final No growth in 5 days. Assessment And Plan - Current Problems (Diagnosis) (1) Appendiceal abscess Current Visit: Yes Status: Acute (2) Leukocytosis Current Visit: Yes Status: Acute (3) Chronic gout Current Visit: Yes Status: Acute (4) Essential hypertension Current Visit: Yes Status: Acute - Plan Patient seen and evaluated by Dr. Corona. Laparotomy performed due to enlargem ent of the periappendiceal abscess, abscess was drained and ALBINO drain inserted. Continue antibiotics-IV Zosyn. NG tube to suction per Dr. Corona Pain management as needed. Patient is currently n.p.o. Leukocytosis significantly improved from yesterday. Continue to monitor CBC to follow leukocytosis. IV fluid maintenance. Infectious disease consulted. . Physician Review: Patient Assessed, Agree with Above Assessment and Plan
--- NOTE | 2023-05-01 12:21 | P.PN ---
Subjective Date of Service: 04/28/23 Chief Complaint: Abdominal pain Patient reports intermittent abdominal pain. No recorded fever. Physical Examination - Vital Signs Temperature: 98.3 F Blood Pressure: 149/72 Pulse: 76 Respirations: 16 Pulse Ox (%): 94 - Physical Exam General: Alert, In no apparent distress, Oriented x3 HEENT: Mucous membr. moist/pink Neck: JVD not distended Respiratory: Clear to auscultation bilaterally, Normal air movement Cardiovascular: Regular rate/rhythm, Normal S1 S2 Gastrointestinal: Soft and benign, Non-distended, Tenderness (No guarding. mild RBT) Musculoskeletal: No swelling Integumentary: No rashes Neurological: Normal strength at 5/5 x4 extr - Studies Microbiology Data (last 24 hrs): 04/25/23 14:05 Blood - Blood Aerobic Blood Culture - Final No growth in 5 days. 04/25/23 14:05 Blood - Blood Anaerobic Blood Culture - Final No growth in 5 days. 04/25/23 14:00 Blood - Blood Aerobic Blood Culture - Final No growth in 5 days. 04/25/23 14:00 Blood - Blood Anaerobic Blood Culture - Final No growth in 5 days. Assessment And Plan - Current Problems (Diagnosis) (1) Appendiceal abscess Current Visit: Yes Status: Acute (2) Leukocytosis Current Visit: Yes Status: Acute (3) Chronic gout Current Visit: Yes Status: Acute (4) Essential hypertension Current Visit: Yes Status: Acute - Plan Continue antibiotics Pain management as needed. Patient is on a clear liquid diet Continue to monitor CBC to follow leukocytosis. IV fluid maintenance. Increase activity as tolerated. .
[2023-05-01] MEDS: ATORVASTATIN 20 MG TAB PO SCH (20:00)
[2023-05-01] MEDS ORDERED: DIPHENHYDRAMINE 50 MG/ML VIAL IV ONE (21:00)
[2023-05-02 04:22] LABS: Potassium 3.7 mEq/L (3.5-5.1)
[2023-05-02] MEDS: PIPER TAZO 3.375 GM in NA CHLORIDE 0.9% 100 ML IV SCH ×3 (04:46→20:12)
[2023-05-02 04:51] LABS: Hematocrit 31.4 % (39.6-49.0); Lymphocytes % 15.8 % (15.3-44.8); MCV 89.2 fL (80-100); MPV 9.8 fL (7.6-11.3); Platelets 467 thou/uL (152-406); RBC Red Blood Cell Count 3.52 M/uL (4.33-5.43)
[2023-05-02] MEDS: INSULIN -REGULAR HUMAN 50 UNIT/0.5 ML ML SQ SCH ×4 (06:00→17:32)
[2023-05-02] MEDS: POLYETHYL GLY 3350 17 GM/DOSE PO SCH ×2 (08:33→21:00)
[2023-05-02] MEDS: DOCUSATE NA 100 MG CAP PO SCH ×2 (08:33→21:00)
--- NOTE | 2023-05-02 08:55 | P.CNS ---
Date of Consult: 05/02/23 Reason for Consult: intra-abdominal abscess Chief Complaint: Abdominal pain History of Present Illness: Patient is a 67-year-old male with a past medical history of gout, hypertension and hyperlipidemia who presented to the ED with complaints of periumbilic a bdominal pain, nausea, fever and chills that started 4 days prior to arrival. Patient was found to have intra-abdominal abscess and underwent laparotomy and drainage of abscess on 04/29. Allergies No Known Allergies Allergy (Unverified 04/25/23 17:47) Home medications list reviewed: Yes Home Medications: Allopurinol 100 mg PO DAILY 04/26/23 Lisinopril [Zestril] 5 mg PO DAILY 04/26/23 Lovastatin 40 mg PO DAILY 04/26/23 Metformin HCl 500 mg PO DAILY 04/26/23 - Past Medical/Surgical History Diabetic: No -: HTN -: HLD -: Gout -: Left meniscus repair -: Hemorrhoidectomy - Family History Father Medical History: Diabetes, Cancer Mother Medical History: Diabetes, Cancer - Social History Alcohol use: Yes CD- Drugs: No Caffeine use: Yes Place of Residence: Home Review of Systems 10-point ROS is otherwise unremarkable Gastrointestinal: Other (mild abdominal tenderness) Physical Examination Temp Pulse Resp BP Pulse Ox 98.3 F 86 14 150/90 H 96 05/02/23 08:00 05/02/23 08:00 05/02/23 08:00 05/02/23 08:00 05/02/23 08:00 General: Alert, In no apparent distress, Oriented x3 HEENT: Atraumatic, Normocephalic Neck: Supple, JVD not distended Respiratory: Clear to auscultation bilaterally, Normal air movement (on room air) Cardiovascular: No edema, Normal pulses, Regular rate/rhythm Gastrointestinal: Hypoactive, Other (NG tube), Tenderness (mild tenderness incision site areas) Integumentary: Other (Adbominal surgical incision sites clean dry and intact. ALBINO drain RLQ. ) Neurological: Normal speech, Normal tone, Normal affect Laboratory Data - Reviewed Microbiology data -Reviewed Imagings Data: -Reviewed Conclusions/Impression: Problem list Abdominopelvic abscess Gout Hypertension Hyperlipidemia Hypocalcemia Abdominopelvic Abscess - CT abdomen pelvis 04/29: "[id number] enlargement of right lower quadrant suspected periappendiceal abscess. Cholelithiasis" - s/p expoloratory laparoscopy, drainage of abdominopelvic abscess and placement of abdominal drain on 04/[address] Corona - Leukocytosis improving. Afebrile. -Blood cultures 04/25: No growth to date -Previously on ciprofloxacin and metronidazole (04/26-04/28) -Currently on Zosyn (04/28-) Recommendations Patient continues to improve clinically. Abdominal incision sites appear clean dry and intact. ALBINO drain RLQ. Mild abdominal tenderness at incision site WNL. No nausea or vomiting. No shortness of breath, chest pain, cough or palpitations. - Continue antibiotic therapy for at least 7 days (04/29-05/06) - Surgical incision site care per Dr. Corona. - Monitor WBC and fever trends. - Encourage incentive spirometry. - Physical therapy Case discussed with Liam Sparrow
[2023-05-02] MEDS: allopurinoL 100 MG TAB PO SCH (09:00)
[2023-05-02] MEDS ORDERED: KCL 20 MEQ/100 mL IVPB 20 MEQ/100 ML BAG IV SCH (09:00)
[2023-05-02] MEDS: lisinopriL 5 MG TAB PO SCH (09:00)
[2023-05-02] MEDS: NA CHLORIDE 0.9% 1,000 ML IV SCH ×2 (10:41→20:12)
--- NOTE | 2023-05-02 14:23 | P.PN ---
Subjective Date of Service: 05/02/23 Chief Complaint: Abdominal pain Patient denies any pain. He ambulated in the hallway with therapy today. Nursing staff report patient had a bowel movement today. Physical Examination - Vital Signs Temperature: 98.3 F Blood Pressure: 150/90 Pulse: 86 Respirations: 14 Pulse Ox (%): 96 - Physical Exam General: Alert, In no apparent distress, Oriented x3 HEENT: Mucous membr. moist/pink Neck: Supple, JVD not distended Respiratory: Clear to auscultation bilaterally, Normal air movement Cardiovascular: No edema, Regular rate/rhythm, Normal S1 S2 Gastrointestinal: Normal bowel sounds, Soft and benign, Non-distended, No tenderness Musculoskeletal: No swelling Integumentary: No rashes Neurological: Normal strength at 5/5 x4 extr Assessment And Plan - Current Problems (Diagnosis) (1) Appendiceal abscess Current Visit: Yes Status: Acute (2) Leukocytosis Current Visit: Yes Status: Acute (3) Chronic gout Current Visit: Yes Status: Acute (4) Essential hypertension Current Visit: Yes Status: Acute - Plan Laparotomy performed due to enlargement of the periappendiceal abscess, abscess was drained and ALBINO drain inserted. Patient had a bowel movement today. Continue antibiotics-IV Zosyn. Clamp NG tube for removal today per Dr. Corona. Pain management as needed. Leukocytosis continues to improve Continue IV fluid maintenance. Seen by infectious disease. Activity as tolerated.
[2023-05-02] MEDS: ENOXAPARIN 40 MG/0.4 ML SQ SCH (17:05)
[2023-05-02] MEDS: ATORVASTATIN 20 MG TAB PO SCH (21:00)
[2023-05-03 03:22] LABS: Absolute Lymphocytes (CBC) 2.3 K/uL (0.7-4.9); Hematocrit 31.3 % (39.6-49.0); Lymphocytes % 19.2 % (15.3-44.8); MCV 88.9 fL (80-100); MPV 9.4 fL (7.6-11.3); Platelets 476 thou/uL (152-406); RBC Red Blood Cell Count 3.52 M/uL (4.33-5.43)
[2023-05-03] MEDS: PIPER TAZO 3.375 GM in NA CHLORIDE 0.9% 100 ML IV SCH ×3 (04:25→20:12)
[2023-05-03] MEDS: NA CHLORIDE 0.9% 1,000 ML IV SCH ×3 (04:25→20:14)
[2023-05-03] MEDS: INSULIN -REGULAR HUMAN 50 UNIT/0.5 ML ML SQ SCH ×2 (06:00)
--- NOTE | 2023-05-03 07:00 | P.PN ---
Date of Service: 05/03/23 Subjective: Feeling better today Denies abdominal pain, +Large BM today NGT removed yesterday Tolerating clear liquids no new / worsening problems ambulating in room ROS: 10 point ROS as noted above, otherwise negative Physical Exam: GEN: Alert, oriented, NAD HEENT: Normal conjunctiva, sclera anicteric CV: Regular rate and rhythm, no edema Pulm: Nonlabored respirations on room air, clear bilaterally ABD: Soft, mild tenderness near incisions, non-distended, Dressing in place c/d/i Neuro: Normal speech, normal affect vitals reviewed Problem List: Abdominopelvic abscess, now s/p Laparotomy, abscess drainage and ALBINO drain inserted (04/29) Gout Hypertension Hyperlipidemia Abdominopelvic abscess, now s/p Laparotomy, abscess drainage and ALBINO drain inserted (04/29) General surgery - Dr. Corona consulted s/p Laparotomy, abscess drainage and ALBINO drain inserted (04/29) NGT DCd 05/02 PRN pain medication Continue IV fluid Tolerating clear liquids advance diet per surgery ID following previously on cipro / flagyl (04/26-04/28) Continue IV Zosyn (04/28-) recommends at least 7 days - end: 05/06 afebrile, +leukocytosis improving PT consult Gout Hypertension Hyperlipidemia Continue home medications VTE: Lovenox Code: Full Dispo: Home, 1-2 days
[2023-05-03] MEDS: allopurinoL 100 MG TAB PO SCH (08:26)
[2023-05-03] MEDS: DOCUSATE NA 100 MG CAP PO SCH ×2 (08:26→20:21)
[2023-05-03] MEDS: POLYETHYL GLY 3350 17 GM/DOSE PO SCH ×2 (08:27→20:21)
[2023-05-03] MEDS: lisinopriL 5 MG TAB PO SCH (08:33)
--- NOTE | 2023-05-03 08:52 | P.PN ---
Date of Service: 05/03/23 Chief Complaint: Abdominal pain Subjective: Patient seen and examined at bedside. He reports he has been significantly improving. Denies any nausea, vomiting or diarrhea. No chest pain, palpitations, shortness of breath or cough. Mild abdominal tenderness on palpation at incision site. Denies any new or worsening complaints. Physical Examination Temp Pulse Resp BP Pulse Ox 98.1 F 68 15 134/85 92 05/03/23 04:00 05/03/23 08:33 05/03/23 04:00 05/03/23 08:05/03/23 04:00 General: Alert, In no apparent distress, Oriented x3 HEENT: Atraumatic, Normocephalic Neck: Supple, JVD not distended Respiratory: Clear to auscultation bilaterally, Normal air movement (on room air) Cardiovascular: No edema, Normal pulses, Regular rate/rhythm Gastrointestinal: Normoactive bowel sounds. Non-distended. Mild tenderness incision site areas. Integumentary: Adbominal surgical incision sites clean dry and intact. ALBINO drain RLQ. Neurological: Normal speech, Normal tone, Normal affect Laboratory Data - Reviewed Microbiology data -Reviewed Imagings Data: -Reviewed Medications list: reviewed Assessment and plan Problem list Abdominopelvic abscess Gout Hypertension Hyperlipidemia Hypocalcemia Abdominopelvic Abscess - CT abdomen pelvis 04/29: "[id number] enlargement of right lower quadrant suspected periappendiceal abscess. Cholelithiasis" - s/p expoloratory laparoscopy, drainage of abdominopelvic abscess and placement of abdominal drain on 04/[address] Corona -Blood cultures 04/25: No growth to date -Previously on ciprofloxacin and metronidazole (04/26-04/28) - On Zosyn (04/28-) - Leukocytosis improving. Afebrile. - Abdominal incision sites appear clean dry and intact. ALBINO drain RLQ with minimal serosanguinous drainage. - Last bowel movement 05/03 Recommendations - Continue antibiotic therapy for at least 7 days (04/29-05/06). Currently on zosyn, continue for now. - Surgical incision site care per Dr. Corona. - Monitor WBC and fever trends. - Encourage incentive spirometry. - Physical therapy Case discussed with Liam Sparrow
[2023-05-03] MEDS: ENOXAPARIN 40 MG/0.4 ML SQ SCH (17:04)
[2023-05-03] MEDS: ATORVASTATIN 20 MG TAB PO SCH (20:12)
[2023-05-03] MEDS ORDERED: MELATONIN 5 MG TABLET PO PRN (23:06)
[2023-05-04 03:41] LABS: Absolute Lymphocytes (CBC) 2.2 K/uL (0.7-4.9); Hematocrit 29.7 % (39.6-49.0); Lymphocytes % 19.2 % (15.3-44.8); MCV 88.9 fL (80-100); MPV 9.3 fL (7.6-11.3); Platelets 539 thou/uL (152-406); RBC Red Blood Cell Count 3.34 M/uL (4.33-5.43)
[2023-05-04 03:55] LABS: Magnesium 1.7 mg/dL (1.6-2.4); Phosphorus 2.7 mg/dL (2.5-4.9); Potassium 3.8 mEq/L (3.5-5.1)
[2023-05-04] MEDS: PIPER TAZO 3.375 GM in NA CHLORIDE 0.9% 100 ML IV SCH (04:34)
[2023-05-04 08:47] VITALS: O2SAT 94
--- NOTE | 2023-05-04 08:47 | P.DS ---
Admission Date: 04/25/23 Discharge Date: 05/04/23 Disposition: ROUTINE DISCHARGE Discharge Condition: GOOD Reason for Admission: Abdominal pain Consultations: General Surgery - Dr. Coroan Infectious Disease - Dr. Amaro Brief History of Present Illness: 67yo M, PMH: hyperlipidemia, gout, hypertension Patient presents with complaint of abdominal pain located periumbical area that has been ongoing for the past 4 days. Patient rated pain as 10/10 in severity and described pain as sharp in quality. Patient reported associated signs and symptoms of nausea, fever and chills. Patient denies any other signs or symptoms. Symptoms are aggravated or relieved by nothing. Patient decided to present to the hospital due to worsening symptoms. Hospital Course: Problem List: Abdominopelvic abscess, now s/p Laparotomy, abscess drainage and ALBINO drain inserted (04/29) Gout Hypertension Hyperlipidemia Patient presented with abdominal pain. He was found to have an abdominalpelvic abscess. General surgery was consulted. Patient underwent successful expoloratory laparoscopy, drainage of abdominopelvic abscess and placement of abdominal drain on 04/[address] Corona. He was given empiric cipro / flagyl and continued with fever so he was switched to Zosyn . Blood cultures were without growth. Infectious disease was consulted. Patient received Zosyn for ~6 days in addition to 2 days of cipro/flagyl, and will be discharged with an additional 7 days of Augmentin. Recommend soft diet and to follow up with Dr. Corona in 1 week. Patient was feeling better, abdominal pain improved, tolerating diet, was deemed stable for discharge home. Patient is to finish 7 more days of antibiotics for a total of ~2 weeks of antibiotics coverage on discharge. no shower for 2days. drain was removed and site may have some drainage. Medications: New: augmentin 1 tab twice daily for 7 days Follow up: PCP 3-5 days General surgery - Dr. Corona in 1 week Physical Exam: GEN: Alert, oriented, NAD HEENT: Normal conjunctiva, sclera anicteric CV: Regular rate and rhythm, no edema Pulm: Nonlabored respirations on room air, clear bilaterally ABD: Soft, mild tenderness near incisions, non-distended, Dressing in place c/d/i Neuro: Normal speech, normal affect Vital Signs/Physical Exam: Temp Pulse Resp BP Pulse Ox 97.4 F 63 14 126/70 98 05/04/23 04:00 05/04/23 04:00 05/04/23 04:00 05/04/23 04:00 05/04/23 04:00 Laboratory Data at Discharge: WBC 11.50 thou/uL (4.3-10.9) H 05/04/23 02:34 Hgb 10.1 g/dL (13.6-17.9) L 05/04/23 02:34 Hct 29.7 % (39.6-49.0) L 05/04/23 02:34 Plt Count 539 thou/uL (152-406) H 05/04/23 02:34 PT 12.3 SECONDS (9.5-12.5) 04/25/23 14:05 INR 1.12 04/25/23 14:05 APTT 27.9 SECONDS (24.3-36.9) 04/25/23 14:05 Sodium 138 mEq/L (136-145) 05/04/23 02:34 Potassium 3.8 mEq/L (3.5-5.1) 05/04/23 02:34 BUN 8 mg/dL (7-18) 05/04/23 02:34 Creatinine 0.91 mg/dL (0.70-1.30) 05/04/23 02:34 Glucose 104 mg/dL (74-106) 05/04/23 02:34 Phosphorus 2.7 mg/dL (2.5-4.9) 05/04/23 02:34 Magnesium 1.7 mg/dL (1.6-2.4) 05/04/23 02:34 Total Bilirubin 1.6 mg/dL (0.2-1.0) H 04/25/23 12:54 AST 43 U/L (15-37) H 04/25/23 12:54 ALT 74 U/L (16-61) H 04/25/23 12:54 Alkaline Phosphatase 202 U/L (45-117) H 04/25/23 12:54 Triglycerides 115 mg/dL (<150) 04/26/23 01:56 Cholesterol 124 mg/dL (<200) 04/26/23 01:56 HDL Cholesterol 18 mg/dL (40-60) L 04/26/23 01:56 Cholesterol/HDL Ratio 6.89 04/26/23 01:56 Lipase 40 U/L (13-75) 04/25/23 12:54 Home Medications: Allopurinol 100 mg PO DAILY 04/26/23 Lisinopril [Zestril] 5 mg PO DAILY 04/26/23 Lovastatin 40 mg PO DAILY 04/26/23 Metformin HCl 500 mg PO DAILY 04/26/23 Amox/Clavulanate [Augmentin 875-125 Tab] 1 each PO BID 7 Days #14 tab 05/04/23 New Medications: Amox/Clavulanate [Augmentin 875-125 Tab] 1 each PO BID 7 Days #14 tab Physician Discharge Instructions: Patient presented with abdominal pain. He was found to have an abdominalpelvic abscess. General surgery was consulted. Patient underwent successful expoloratory laparoscopy, drainage of abdominopelvic abscess and placement of abdominal drain on 04/[address] Corona. He was given empiric cipro / flagyl and continued with fever so he was switched to Zosyn . Blood cultures were without growth. Infectious disease was consulted. Patient received Zosyn for ~6 days in addition to 2 days of cipro/flagyl, and will be discharged with an additional 7 days of Augmentin. Recommend soft diet and to follow up with Dr. Corona in 1 week. Patient was feeling better, abdominal pain improved, tolerating diet, was deemed stable for discharge home. Patient is to finish 7 more days of antibiotics for a total of ~2 weeks of antibiotics coverage on discharge. no shower for 2days. drain was removed and site may have some drainage. Medications: New: augmentin 1 tab twice daily for 7 days Follow up: PCP 3-5 days General surgery - Dr. Corona in 1 week Followup: Esteban Corona MD [ACTIVE - CAN ADMIT] - (call to schedule appointment ) Andrei Alejandro DO [Primary Care Provider] - (Call to schedule appointment. ) Time spent managing pt's care (in minutes): 45
[2023-05-04] MEDS: POLYETHYL GLY 3350 17 GM/DOSE PO SCH (08:56)
[2023-05-04] MEDS: DOCUSATE NA 100 MG CAP PO SCH (08:56)
[2023-05-04] MEDS ORDERED: MAGNESIUM SULFATE 1 gm IVPB 1 GM/100 ML BAG IV ONE (09:00)
[2023-05-04 09:20] VITALS: BP 139/86; TEMP 97
== END 2023-05-04 09:48 | disposition home or self-care (01) | DRG 358 ==
LOC: ER 10:58 → ERHOLD 17:28 → 2ND 04-26 08:02
PROVIDERS: ADMIT Hospitalist; ATTEND Hospitalist
PROC: 0W9G40Z Drainage of Peritoneal Cavity with Drainage Device, Percutaneous Endoscopic Approach (ICD-10-PCS; 2023-04-29)
PROC: 0WJG4ZZ Inspection of Peritoneal Cavity, Percutaneous Endoscopic Approach (ICD-10-PCS; principal; 2023-04-29 12:30)
DX: K35.33 Acute appendicitis with perforation, localized peritonitis, and gangrene, with abscess (principal); E78.00 Pure hypercholesterolemia, unspecified; I12.9 Hypertensive chronic kidney disease with stage 1 through stage 4 chronic kidney disease, or unspecified chronic kidney disease; N18.2 Chronic kidney disease, stage 2 (mild); M1A.9XX0 Chronic gout, unspecified, without tophus (tophi); K80.20 Calculus of gallbladder without cholecystitis without obstruction; E83.51 Hypocalcemia; E66.09 Other obesity due to excess calories; Z71.3 Dietary counseling and surveillance; Z68.30 Body mass index [BMI] 30.0-30.9, adult; Z79.84 Long term (current) use of oral hypoglycemic drugs; Z79.899 Other long term (current) drug therapy; Z87.891 Personal history of nicotine dependence
CPT/HCPCS: 36415; 74018; 74177; 80048; 80053; 80061; 81001; 82947; 83036; 83605; 83690; 83735; 83880; 84100; 85025; 85610; 85730; 87040; 93005; 94010; 94760; 96361; 96365; 96366; 96367; 96375; 97116; 97161; 97530; 99284; J0744; J1170; J1200; J1335; J1650; J2001; J2250; J2405; J2543; J2704; J2710; J3010; J3475; J3480; J7030; J7040; J7120; Q9967